=== PATIENT | female | born 1990 | race Two or more races ===

== ENCOUNTER 2022-02-27 11:30 | Emergency (ER) | payer MEDICAID ==
[~2022-02-27] VITALS: Ht 160 cm; Wt 54.0 kg
[2022-02-27] MEDS ORDERED: ONDANSETRON ODT 4 MG TAB PO ONE (12:15)
[2022-02-27 12:35] LABS: Urine Bacteria FEW /hpf (None Seen); Urine Blood Negative /uL (Negative); Urine Specific Gravity 1.013 (1.001-1.035); Urine WBC 15 /hpf (0 - 5); Urine WBC Clumps PRESENT /hpf (None Seen)
[2022-02-27] MEDS ORDERED: NITR-87 PO (15:38)
[2022-02-27 16:02] VITALS: BP 107/60
== END 2022-02-27 16:03 | disposition home or self-care (01) ==
LOC: ER 11:30
DX: O20.0 Threatened abortion (principal); O23.41 Unspecified infection of urinary tract in pregnancy, first trimester; N39.0 Urinary tract infection, site not specified; Z3A.08 8 weeks gestation of pregnancy
CPT/HCPCS: 36415; 76801; 76817; 81001; 84702; 99284; Q0162

== ENCOUNTER 2022-06-11 08:22 | Emergency (ER) | payer MEDICAID ==
[~2022-06-11] VITALS: Ht 160 cm; Wt 66.3 kg
[~2022-06-11 08:22] MED LIST: NITR-87 PO
[2022-06-11] MEDS ORDERED: SODIUM CHLORIDE 0.9% 1,000 ML IV ONE ×3 (08:45→10:15)
[2022-06-11 08:50] LABS: Basophils # (auto) 0 10 ^3/uL (0-0.2); Basophils % (auto) 0.3 % (0.0-2.0); Eosinophils # (auto) 0.1 10 ^3/uL (0-0.8); Eosinophils % (auto) 1.1 % (0.0-7.0); Hematocrit 32.9 % (36.0-46.0); Lymphocytes # (auto) 1.2 10 ^3/uL (0.4-5.4); Lymphocytes % (auto) 16.1 % (10.0-50.0); Mean Corpuscular Hemoglobin 30.1 pg (28.0-32.0); Mean Corpuscular Hgb Conc. 33.4 g/dL (32.0-36.0); Monocytes # (auto) 0.5 10 ^3/uL (0-1.3); Neutrophils # (auto) 5.8 10 ^3/uL (1.6-8.6); Neutrophils % (auto) 75.5 % (37.0-80.0); Nucleated Red Blood Cells % 0.1 %; Red Blood Cells 3.66 10^6/uL (4.0-5.20); Red Cell Distribution Width 12.4 % (11.8-14.3); White Blood Cell 7.7 10^3/uL (4.4-10.8)
[2022-06-11] MEDS ORDERED: PROMETHAZINE HCL 25 MG/ML 1ML ONE (09:04)
[2022-06-11 09:07] LABS: Albumin 2.8 g/dL (3.4-5.0); Calcium 8.8 mg/dL (8.5-10.1); Potassium 3.4 mmol/L (3.5-5.1)
[2022-06-11 09:10] VITALS: BP 113/78
[2022-06-11 09:10] LABS: BUN/Creatinine Ratio 9.8 (10.0-20.0); Bilirubin, Total 0.3 mg/dL (0.2-1.0); Total Protein 6.8 g/dL (6.4-8.2)
[2022-06-11] MEDS ORDERED: PROMETHAZINE HCL 25 MG/ML 1ML IV ONE (09:15)
[2022-06-11 09:33] LABS: Urine Bacteria FEW /hpf (None Seen); Urine Blood 1+ /uL (Negative); Urine Mucus FEW (None Seen); Urine Specific Gravity 1.015 (1.001-1.035); Urine WBC 2 /hpf (0 - 5)
[2022-06-11] MEDS ORDERED: DOXY10TA OR (10:20)
== END 2022-06-11 10:47 | disposition home or self-care (01) ==
LOC: ER 08:22
DX: O21.8 Other vomiting complicating pregnancy (principal); K52.9 Noninfective gastroenteritis and colitis, unspecified; R10.2 Pelvic and perineal pain; Z3A.24 24 weeks gestation of pregnancy
CPT/HCPCS: 36415; 76805; 80053; 81001; 84702; 85025; 96361; 96374; 99285; J2550; J7030

== ENCOUNTER 2022-10-05 12:56 | Observation (INO) | payer MEDICAID ==
[~2022-10-05 12:56] MED LIST changes: +DOXY10TA OR; +PREN27TA7 PO
== END 2022-10-05 15:15 | disposition home or self-care (01) ==
LOC: LDRP 12:56
PROVIDERS: ADMIT Obstetrics & Gynecology; ATTEND Obstetrics & Gynecology
DX: O62.9 Abnormality of forces of labor, unspecified (principal); O26.893 Other specified pregnancy related conditions, third trimester; N89.8 Other specified noninflammatory disorders of vagina; Z3A.40 40 weeks gestation of pregnancy
CPT/HCPCS: 59025; 76818; 81002; 94760; G0378

== ENCOUNTER 2022-10-06 03:51 | Observation (INO) | payer MEDICAID | END 2022-10-06 05:14 | disposition home or self-care (01) | LOC: LDRP 03:51 → UNDOADMIN 03:51 → LDRP 04:13 → UNDODISIN 05:32 | PROVIDERS: ADMIT Obstetrics & Gynecology; ATTEND Obstetrics & Gynecology | DX: O62.9 Abnormality of forces of labor, unspecified (principal); Z3A.40 40 weeks gestation of pregnancy | CPT/HCPCS: 59025; 81002; 94760; G0378 ==

== ENCOUNTER 2022-10-06 10:43 | Inpatient (IN) | payer MEDICAID ==
[~2022-10-06] VITALS: Ht 160 cm; Wt 81.2 kg
[2022-10-06] MEDS ORDERED: PHISODERM TOP SOLN 240ML BTL TOP PRN (11:00)
[2022-10-06] MEDS ORDERED: PROMETHAZINE HCL 25 MG/ML 1ML IV PRN (11:00)
[2022-10-06] MEDS ORDERED: LIDOCAINE 2%HCL (LOCAL ANESTH.) INJ 20ML MDV IJ PRN (11:00)
[2022-10-06] MEDS ORDERED: LACT. RINGERS/OXYTOCIN 20UNITS 500 ML IV ONE ×2 (11:00→11:30)
[2022-10-06] MEDS ORDERED: LACTATED RINGER'S 1,000 ML IV ONE (11:15)
[2022-10-06] MEDS ORDERED: NALOXONE HCL 0.4 MG/ML VIAL IV ONE (11:15)
[2022-10-06] MEDS ORDERED: ROPIVACAINE HCL 200 ML EPI SCH (11:15)
[2022-10-06] MEDS ORDERED: LIDOCAINE HCL 2 %PF INJ 10ML AMP IJ ONE (11:15)
[2022-10-06] MEDS ORDERED: ePHEDrine SULFATE 50 MG/ML AMP IV ONE (11:15)
[2022-10-06 11:54] LABS: Basophils # (auto) 0 10 ^3/uL (0-0.2); Hemoglobin 10.4 g/dL (12.2-16.2); Lymphocytes # (auto) 1.5 10 ^3/uL (0.4-5.4); Neutrophils # (auto) 11.5 10 ^3/uL (1.6-8.6)
[2022-10-06 11:57] LABS: Basophils % (auto) 0.2 % (0.0-2.0); Eosinophils # (auto) 0.1 10 ^3/uL (0-0.8); Eosinophils % (auto) 0.4 % (0.0-7.0); Hematocrit 32.7 % (36.0-46.0); Lymphocytes % (auto) 11.1 % (10.0-50.0); Mean Corpuscular Hemoglobin 25.3 pg (28.0-32.0); Mean Corpuscular Hgb Conc. 31.6 g/dL (32.0-36.0); Mean Corpuscular Volume 80.1 fL (80.0-100.0); Monocytes # (auto) 0.7 10 ^3/uL (0-1.3); Monocytes % (auto) 4.8 % (0.0-12.0); Neutrophils % (auto) 83.5 % (37.0-80.0); Nucleated Red Blood Cells % 0.1 %; Red Blood Cells 4.09 10^6/uL (4.0-5.20); Red Cell Distribution Width 17.8 % (11.8-14.3); White Blood Cell 13.8 10^3/uL (4.4-10.8)
[2022-10-06 11:58] LABS: Alcohol, Urine < 3.0 mg/dL (0-10); Amphetamine Screen, Urine NEGATIVE (NEGATIVE); Barbiturate Scree,Urine NEGATIVE (NEGATIVE); Benzodiazephine Screen, Urine NEGATIVE (NEGATIVE); Cannabinoid Screen, Urine NEGATIVE (NEGATIVE); Cocaine Screen, Urine NEGATIVE (NEGATIVE); Opiate Scree,Urine NEGATIVE (NEGATIVE); Phencyclidine Screen, Urine NEGATIVE (NEGATIVE)
[2022-10-06 11:59] LABS: Albumin 2.6 g/dL (3.4-5.0); Calcium 8.9 mg/dL (8.5-10.1); Potassium 3.7 mmol/L (3.5-5.1)
[2022-10-06 12:00] LABS: INR 0.96 (0.9-1.15); Partial Thromboplastin Time 27.3 SEC (24.5-34.5); Prothrombin Time 10.1 sec (9.3-11.8)
[2022-10-06 12:03] LABS: BUN/Creatinine Ratio 10.3 (10.0-20.0); Bilirubin, Total 0.3 mg/dL (0.2-1.0); Total Protein 6.7 g/dL (6.4-8.2)
[2022-10-06 12:08] LABS: Urine Bacteria NONE SEEN /hpf (None Seen); Urine Blood TRACE /uL (Negative); Urine Clarity HAZY (Clear); Urine Color Yellow (Yellow); Urine Mucus FEW (None Seen); Urine Protein, UAD Negative (Negative); Urine Specific Gravity 1.017 (1.001-1.035); Urine Urobilinogen Normal (Negative); Urine WBC 26 /hpf (0 - 5)
[2022-10-06 13:12] LABS: Fern Testing Positive
[2022-10-06] MEDS: LACTATED RINGER'S 1,000 ML IV SCH ×2 (14:19→14:48)
[2022-10-06] MEDS: DERMOPLAST 60ML BOTTLE TOP PRN (18:46)
[2022-10-06] MEDS: WITCH HAZEL-GLYCERIN PAD TOP PRN (18:47)
[2022-10-06] MEDS ORDERED: ACETAMINOPHEN 325 MG TAB PO ONE (20:15)
[2022-10-06] MEDS ORDERED: ceFAZolin 2 GM/D5W100ml 100 ML IV ONE (20:45)
[2022-10-07 03:10] VITALS: BP 129/74; PULSE 108; RESP 17; TEMP 98.3; O2SAT 98
[2022-10-07] MEDS ORDERED: ONDANSETRON ODT 4 MG TAB PO PRN (04:15)
[2022-10-07] MEDS: ceFAZolin 1GM/50ML 50 ML IV SCH ×2 (05:42→13:23)
[2022-10-07 07:15] VITALS: BP 91/50; PULSE 98; RESP 15; TEMP 98.8; O2SAT 98
[2022-10-07] MEDS: IBUPROFEN 600 MG TAB PO PRN ×2 (07:45→17:07)
[2022-10-07 10:35] VITALS: BP 108/59; PULSE 96; PULSE 98; RESP 15; RESP 16; TEMP 97.9; O2SAT 98
[2022-10-07] MEDS: ACETAMINOPHEN 325 MG TAB PO PRN ×2 (13:58→23:00)
[2022-10-07 15:30] VITALS: BP 105/61; PULSE 88; RESP 16; TEMP 98.5; O2SAT 100
[2022-10-07 19:18] VITALS: BP 103/63; PULSE 91; RESP 16; TEMP 98.1; O2SAT 99
[2022-10-07] MEDS ORDERED: DOCUSATE SOD 100 MG CAP PO SCH ×2 (22:00)
[2022-10-07 22:51] VITALS: BP 100/68; PULSE 96; RESP 16; TEMP 98.1; O2SAT 98
[2022-10-08 03:30] VITALS: BP 104/62; PULSE 86; RESP 16; TEMP 97.9; O2SAT 98
[2022-10-08] MEDS: IBUPROFEN 600 MG TAB PO PRN (03:58)
[2022-10-08 07:07] LABS: RPR Non Reactive (Non Reactive)
[2022-10-08 07:30] VITALS: BP 103/68; PULSE 81; RESP 16; TEMP 98; O2SAT 99
[2022-10-08] MEDS: DERMOPLAST 60ML BOTTLE TOP PRN (09:25)
[2022-10-08] MEDS: ACETAMINOPHEN 325 MG TAB PO PRN (09:25)
[2022-10-08] MEDS: WITCH HAZEL-GLYCERIN PAD TOP PRN (09:25)
[2022-10-08 10:30] VITALS: BP 104/71; PULSE 79; RESP 17; TEMP 98.2; O2SAT 100
[2022-10-10 20:06] LABS: Treponema pallidum Ab (FTA-Ab) Non Reactive (Non Reactive)
== END 2022-10-08 12:40 | disposition home or self-care (01) | DRG 560 ==
LOC: LDRP 10:43 → OBSVTOIN 11:03
PROVIDERS: ADMIT Obstetrics & Gynecology; ATTEND Obstetrics & Gynecology
PROC: 10D07Z6 Extraction of Products of Conception, Vacuum, Via Natural or Artificial Opening (ICD-10-PCS; principal; 2022-10-07)
PROC: 0HQ9XZZ Repair Perineum Skin, External Approach (ICD-10-PCS; 2022-10-07)
PROC: 3E0R3BZ Introduction of Anesthetic Agent into Spinal Canal, Percutaneous Approach (ICD-10-PCS; 2022-10-07)
PROC: 00HU33Z Insertion of Infusion Device into Spinal Canal, Percutaneous Approach (ICD-10-PCS; 2022-10-07)
DX: O42.02 Full-term premature rupture of membranes, onset of labor within 24 hours of rupture (principal); Z37.0 Single live birth; O99.344 Other mental disorders complicating childbirth; F32.A Depression, unspecified; O77.0 Labor and delivery complicated by meconium in amniotic fluid; O76 Abnormality in fetal heart rate and rhythm complicating labor and delivery; F41.9 Anxiety disorder, unspecified; O70.0 First degree perineal laceration during delivery; Z3A.40 40 weeks gestation of pregnancy; Z56.0 Unemployment, unspecified
CPT/HCPCS: 36415; 59025; 59409; 62282; 80053; 80307; 81001; 81002; 84112; 85025; 85610; 85730; 86592; 86850; 86900; 86901; 94760; 96360; 96361; 96365; 96366; G0378; J0690; J2590